=== PATIENT | female | born 1975 | race Caucasian/White ===

== ENCOUNTER 2017-04-02 10:33 | Emergency (ER) | payer OTHER ==
[2017-04-02 10:50] VITALS: BMI 32.3
--- NOTE | 2017-04-02 11:04 | C.PDOC ---
History Of Present Illness 41 year old female presents to the ED with complaints of left knee pain beginning two days ago. She is ambulatory in the ED. Patient denies trauma, injuries, falls, use of pain medications, numbness, or other complaints. Chief Complaint (Nursing): Lower Extremity Problem/Injury History Per: Patient History/Exam Limitations: no limitations Onset/Duration Of Symptoms: Days (2 days ) Current Symptoms Are (Timing): Still Present Recent travel outside of the [place]: No Past Medical History Reviewed: Historical Data, Nursing Documentation, Vital Signs Vital Signs: Last Vital Signs Temp 97.6 F 04/02/17 12:10 Pulse 58 L 04/02/17 12:10 Resp 18 04/02/17 12:10 BP 145/79 04/02/17 12:10 Pulse Ox 98 04/02/17 14:56 Family History: States: Unknown Family Hx - Social History Hx Alcohol Use: No Hx Substance Use: No - Immunization History Hx Tetanus Toxoid Vaccination: No Hx Influenza Vaccination: No Hx Pneumococcal Vaccination: No Review Of Systems Musculoskeletal: Positive for: Leg Pain (left knee pain ) Neurological: Negative for: Weakness, Numbness Physical Exam - Physical Exam Appears: Non-toxic, No Acute Distress Skin: Warm, Dry Cardiovascular: Rhythm Regular, No Murmur Respiratory: No Rales, No Rhonchi, No Wheezing, Other (clear to auscultation bilaterally ) Extremity: Normal ROM, No Tenderness, No Calf Tenderness, Capillary Refill ( good capillary refill, less than two seconds ), No Deformity, No Swelling Neurological/Psych: Oriented x3, Normal Motor, Normal Sensation Gait: Steady ED Course And Treatment O2 Sat by Pulse Oximetry: 98 (RA) - Other Rad Left Knee X-Ray X-Ray: Viewed By Me, Read By Radiologist Interpretation: FINDINGS: BONES: Normal. No fracture. JOINTS: Normal. No osteoarthritis. JOINT EFFUSION: None. OTHER FINDINGS: None. IMPRESSION: No evidence of acute displaced fracture nor dislocation. Progress Note: Left knee X-Ray was ordered and patient was given Motrin. Disposition - Disposition Referrals: [facility] [Outside] [facility] [Outside] Disposition: HOME/ ROUTINE Disposition Time: 11:45 Condition: GOOD Additional Instructions: Thank you for letting us take care of you today. Your provider was Dr. Palmer. You were treated for an knee sprain. The emergency medical care you received today was directed at your acute symptoms. If you were prescribed any medication, please fill it and take as directed. It may take several days for your symptoms to resolve. Return to the Emergency Department if your symptoms worsen, do not improve, or if you have any other problems. Please contact your doctor or call one of the physicians/clinics you have been referred to that are listed on the Patient Visit Information form that is included in your discharge packet. Bring any paperwork you were given at discharge with you along with any medications you are taking to your follow up visit. Our treatment cannot replace ongoing medical care by a primary care provider (PCP) outside of the emergency department. [facility]. Follow up with the clinic in 3-5 days for re-evaluation and further management. Sivakumar por permitirnos cuidar de janeth chaidez. Orourke proveedor fue el Dr. Palmer. Te trataron por un esguince de solo. La atencin mdica de emergencia que recibi hoy estaba dirigida a chauncey sntomas agudos. Si le recetaron algn medicamento, llnelo y tome lucien se le indic. Puede llevar varios connolly resolver chauncey sntomas. Regrese al Departamento de Emergencias si chauncey sntomas empeoran, no mejoran o si tiene algn otro problema. Comunquese con orourke mdico o llame a jeison de los mdicos / clnicas a los que sanchez sido derivado que figuran en el formulario de informacin de visita del paciente que se incluye en orourke paquete de aung. Lleve consigo cualquier papeleo que reciba al aung junto con cualquier medicamento que est tomando en orourke visita de seguimiento. Nuestro tratamiento no puede reemplazar la atencin m dica continua de un proveedor de atencin primaria (PCP) fuera del departamento de emergencias. Sivakumar por permitir que el equipo de [facility] sea parte de orourke atencin hoy. Michael un seguimiento con la clnica en 3-5 connolly para volver a evaluar y seguir con orourke tratamiento. Prescriptions: Ibuprofen [Motrin] 600 mg PO Q6 PRN #20 tab PRN Reason: Pain, Moderate (4-7) Instructions: Knee Sprain (ED) Forms: Gen Discharge Inst Persian Print Language: ECUADOREAN - Clinical Impression Clinical Impression: Knee sprain - Scribe Statement The provider has reviewed the documentation as recorded by the Scribe Sushma Orosco All medical record entries made by the Scribe were at my direction and personally dictated by me. I have reviewed the chart and agree that the record accurately reflects my personal performance of the history, physical exam, medical decision making, and the department course for this patient. I have also personally directed, reviewed, and agree with the discharge instructions and disposition.
--- NOTE | 2017-04-02 11:54 | RAD ---
PROCEDURE: Left Knee Radiographs. HISTORY: Pain. COMPARISON: None. FINDINGS: BONES: Normal. No fracture. JOINTS: Normal. No osteoarthritis. JOINT EFFUSION: None. OTHER FINDINGS: None. IMPRESSION: No evidence of acute displaced fracture nor dislocation.
[2017-04-02 12:45] VITALS: BP 145/79; PULSE 58; RESP 18; TEMP 97.6
[2017-04-02 14:52] VITALS: O2SAT 98
== END 2017-04-02 12:15 | disposition home or self-care (01) ==
LOC: C.ER 10:33
DX: S83.92XA Sprain of unspecified site of left knee, initial encounter (principal); X58.XXXA Exposure to other specified factors, initial encounter

== ENCOUNTER 2017-06-24 10:16 | Emergency (ER) | payer OTHER, SELFPAY ==
[2017-06-24 10:16] VITALS: BMI 32.3
[2017-06-24 10:29] VITALS: BP 117/79; PULSE 74; RESP 18; TEMP 98.2; O2SAT 100
--- NOTE | 2017-06-24 11:45 | C.PDOC ---
History Of Present Illness 41 year old female presents to the ER for coughing, congestion, right ear pain, and sinus pressure which began 1 week ago. Patient reports that she saw her primary care doctor two days ago on Jun 22, 2016 and she was prescribed Zithromax and Promethazine. Patient reports that she is taking the medications but she feels the same. Time Seen by Provider: 06/24/17 11:30 Chief Complaint (Nursing): Cough, Cold, Congestion History Per: Patient History/Exam Limitations: no limitations Onset/Duration Of Symptoms: Days Current Symptoms Are (Timing): Still Present Associated Symptoms: Cough, Nasal Congestion Severity: Moderate Past Medical History Reviewed: Historical Data, Nursing Documentation, Vital Signs Vital Signs: Last Vital Signs Temp 98.2 F 06/24/17 10:27 Pulse 74 06/24/17 10:27 Resp 18 06/24/17 10:27 BP 117/79 06/24/17 10:27 Pulse Ox 100 06/24/17 13:35 - Medical History PMH: No Chronic Diseases Surgical History: No Surg Hx Family History: States: No Known Family Hx - Social History Hx Alcohol Use: No Hx Substance Use: No - Immunization History Hx Tetanus Toxoid Vaccination: No Hx Influenza Vaccination: No Hx Pneumococcal Vaccination: No Review Of Systems Except As Marked, All Systems Reviewed And Found Negative. Constitutional: Negative for: Fever, Chills ENT: Positive for: Ear Pain, Nose Congestion Respiratory: Positive for: Cough Gastrointestinal: Negative for: Nausea, Vomiting, Abdominal Pain, Diarrhea Physical Exam - Physical Exam Appears: Non-toxic, No Acute Distress Skin: Normal Color, Warm Head: Atraumatic, Normacephalic Eye(s): bilateral: Normal Inspection, PERRL Ear(s): Bilateral: TM Erythema (no erythema), TM Dull Nose: Discharge Oral Mucosa: Moist Throat: Normal, No Erythema, No Exudate Neck: Supple Chest: Symmetrical Cardiovascular: Rhythm Regular Respiratory: Normal Breath Sounds, No Accessory Muscle Use, No Rales, No Rhonchi , No Wheezing Extremity: Normal ROM Neurological/Psych: Oriented x3, Normal Speech, Normal Cognition, Normal Motor, Normal Sensation ED Course And Treatment O2 Sat by Pulse Oximetry: 100 (RA) Pulse Ox Interpretation: Normal Medical Decision Making Medical Decision Making: URI, Sinusitis Patient already taking antibiotics. I explained symptoms will take few days to recover. recommend decongestant such as mucinex or sudafed and analgesics as needed. Disposition Counseled Patient/Family Regarding: Diagnosis, Need For Followup, Rx Given - Disposition Referrals: [facility] [Outside] Disposition: HOME/ ROUTINE Disposition Time: 11:44 Condition: STABLE Additional Instructions: Vaya a garcia mdico o la clnica en 2-5 connolly sin falta, para mas evaluacin. [place] los medicamentos lucien indicado. Volver a la peter de emergencia en cualquier momento si los sntomas persisten o empeoran. Prescriptions: Fluticasone Propionate [Flonase] 1 spray NS DAILY #1 bottle Pseudoephedrine HCl [Sudafed 12-Hour] 120 mg PO Q12 #24 tablet.er Instructions: Upper Respiratory Infection (ED) Forms: m-spatial (Occitan) Print Language: BRITISH - POA Present On Arrival: None - Clinical Impression Clinical Impression: Upper respiratory infection - PA / CROP ROLLER / Resident Statement MD/DO has reviewed & agrees with the documentation as recorded. - Scribe Statement The provider has reviewed the documentation as recorded by the Scribe Raulito Marvin Provider Attestation All medical record entries made by the Scribe were at my direction and personally dictated by me. I have reviewed the chart and agree that the record accurately reflects my personal performance of the history, physical exam, medical decision making, and the department course for this patient. I have also personally directed, reviewed, and agree with the discharge instructions and disposition.
== END 2017-06-24 12:02 | disposition home or self-care (01) ==
LOC: C.ER 10:16
DX: J06.9 Acute upper respiratory infection, unspecified (principal)